=== PATIENT | male | born 1990 | race Caucasian/White ===

== ENCOUNTER 2016-06-08 21:55 | Inpatient (IN) ==
[2016-06-08] MEDS ORDERED: Ondansetron 4 MG/2 ML VIAL IVP ONE (22:33)
[2016-06-08] MEDS ORDERED: *HR* HYDROmorphone (PF) 1 MG/ML SYRINGE IVP ONE ×2 (22:33→23:50)
[2016-06-08] MEDS ORDERED: 0.9 % Sodium Chloride 1,000 ML IVC ONE ×2 (22:33→22:40)
[2016-06-08] MEDS ORDERED: Piperacillin/Tazobactam 3.375 GM in D5% in Water (Mini-Bag+) 100 ML IVPB ONE (22:35)
--- NOTE | 2016-06-08 22:45 | Emergency Department Note ---
START Narrative - START START: I examined this patient and my medical decision-making was reviewed with the PIPELINE GANG SUPERVISOR/PA/Advanced Practice Nurse/Resident Physician. I agree with the documented findings, disposition and treatment plan as described except to the extent set forth below. ED attending note: Patient seen with emergency medicine resident Dr. Lewis. Please see a copy of his note for details of the H&P, evaluation, management and disposition of this patient. We independently had [id number] contact with the patient Briefly: 26-year-old male seen last night by Dr. Erwin myself had no Dr. Tapia S with facial cellulitis that courses of outpatient antibiotics. We tried double coverage last night. Returns with increasing pain and swelling. Febrile and tachycardic. He should not does exhibit SIRS criteria. Patient getting IV analgesics, IV fluids, lactic acid sepsis protocol. Patient will get consult from neurosurgery. Patient will need to be admitted. He will be admitted here or transferred. Provided 30 minutes critical care service for this patient. No airway compromise at this time. Disposition pending.
[2016-06-08 23:02] LABS: Basophils % 0.2 %; Eosinophils % 0.1 %; Hemoglobin 13.6 g/dL (12.9-16.9); Immature Granulocytes % 0.5 % (0-4); Lymphocytes # 1.2 K/mcL (0.6-4.6); Mean Corpuscular Hemoglobin 29.4 pg (28.0-33.3); Mean Corpuscular Volume 86.6 fL (83.0-100.0); Mean Platelet Volume 10.1 fL (9.4-12.4); Monocytes # 1.9 K/mcL (0.0-1.3); Monocytes % 9.5 %; Neutrophils # 16.5 K/mcL (1.6-8.9); Platelet Count 386 K/mcL (140-400); Red Blood Count 4.62 M/mcL (4.19-5.50); Red Cell Distribution Width 12.2 % (11.5-14.5); Segmented Neutrophils % 83.7 %
[2016-06-08 23:14] LABS: BUN/Creatinine Ratio 14 (6-26); Blood Urea Nitrogen 12 mg/dL (8-26); Calcium 9.8 mg/dL (8.6-10.8); Carbon Dioxide 26 mEq/L (19-29); Chloride 101 mEq/L (98-109); Glucose 122 mg/dL (70-99); Magnesium 1.7 mg/dL (1.6-2.6); Osmolality,Calculated 285 (280-300); Phosphorous 1.6 mg/dL (2.3-4.7); Potassium 3.7 mEq/L (3.5-4.5); Sodium 137 mEq/L (136-145); eGFR For African Americans > 60 (> 60); eGFR For Non-African Americans > 60 (> 60)
[2016-06-08] MEDS ORDERED: Lidocaine/EPI 1:100k 1% 20 ML VIAL INFILT ONE (23:18)
[2016-06-08 23:21] LABS: INR 1.2; Prothrombin Time 12.8 Seconds (9.4-12.1)
[2016-06-08 23:24] LABS: Activated Partial Thrombo Time 30.2 Seconds (26.0-36.0)
--- NOTE | 2016-06-08 23:48 | ENT - Consult Note ---
Date of Encounter: 06/08/16 Time of Encounter: 23:30 Assessment and Plan (1) Facial abscess Current Visit: Yes Status: Acute Recommending I&D with culture which was performed in the ER followed by heat IV antibiotics Unasyn probable steroids a pain medication including hydrocodone and nasal decongestant A with nasal saline irrigation of the nose O reevaluate this patient in the morning this patient will be admitted to the hospitalist for management (2) Facial cellulitis Current Visit: Yes Status: Acute White male History of Present Illness History of present illness: White male with several days of progressive worsening of facial cellulitis secondary to dental abscess in the right maxilla patient has an obvious CT finding yesterday of a right buccal abscess which clinically is worsened over the last 24 hours she has swelling around the eye and CT findings consistent with right maxillary sinusitis maxillary sinusitis as a cause of facial cellulitis is rare it is more likely this is a dental issue related to significant tender nurse of his maxillary tooth recommending in-house setting for medical management with IV antibiotics and steroids nasal decongestants Past Med Surg Social Fam HX - Past Medical History Medical history: no medical history Psychiatric history: no psych history - Social History Smoking Status: Current every day smoker Smokeless Tobacco Status: Yes Alcohol use: occasionally Drug use: none - Family History Mother Hx Family Endocrine Disorder: Yes Medications and Allergies Cephalexin [Keflex] 500 mg PO TID #21 capsule 06/08/16 [Rx] Sulfamethoxazole/Trimeth DS [Bactrim DS] 1 each PO BID #14 tablet 06/08/16 [Rx] Acetaminophen [Tylenol] 1,000 mg PO Q6HR PRN 06/09/16 [History] Allergies No Known Allergies Allergy (Verified 06/08/16 22:10) ENT Exam Initial Vital Signs Temp Pulse Resp BP Pulse Ox 100.6 F H 105 18 132/83 95 06/08/16 22:06 06/08/16 22:06 06/08/16 22:06 06/08/16 22:06 06/08/16 22:06 - General physical appearance well developed, well nourished, no distress, moderate pain. negative: moderate distress, severe distress, severe pain, cachectic, obese - Eyes PERRL, normal ocular movement, icteric - ENT normal pinna, normal nares, normal mucosa, no hearing loss, no congestion, deviated nasal septum, nasal discharge, Other (There is significant swelling of the right cheek related to a buccal abscess). negative: decreased hearing, poor correction, dentures, mucosal exudate, dry mucosa - Neck no masses, trachea midline, no lymphadectomy. negative: deviated trachea, diffuse goiter, limited ROM - Respiratory normal expansion, normal respiratory effort, clear to percussion, clear to auscultation - Abdomen Abdomen: soft, non tender, bowel sounds, no tender, no surgical scars - Integumentary no rash, no growths, no abnormal pigmentation Exam Initial Vital Signs Temp Pulse Resp BP Pulse Ox 100.6 F H 105 18 132/83 95 06/08/16 22:06 06/08/16 22:06 06/08/16 22:06 06/08/16 22:06 06/08/16 22:06 Results - Labs 06/09/16 01:10 06/08/16 22:53 Abnormal lab results WBC 19.7 K/mcL (4.3-11.1) H 06/08/16 22:53 Neutrophils # 16.5 K/mcL (1.6-8.9) H 06/08/16 22:53 Monocytes # 1.9 K/mcL (0.0-1.3) H 06/08/16 22:53 PT 12.8 Seconds (9.4-12.1) H 06/08/16 23:09 Glucose 122 mg/dL (70-99) H 06/08/16 22:53 Phosphorus 1.6 mg/dL (2.3-4.7) L 06/08/16 22:53 Diabetes panel 06/08/16 Range/Units 22:53 Sodium 137 (136-145) mEq/L Potassium 3.7 (3.5-4.5) mEq/L Chloride 101 (98-109) mEq/L Carbon Dioxide 26 (19-29) mEq/L BUN 12 (8-26) mg/dL Creatinine 0.84 (0.72-1.25) mg/dL Glucose 122 H (70-99) mg/dL Calcium 9.8 (8.6-10.8) mg/dL Calcium panel 06/08/16 Range/Units 22:53 Calcium 9.8 (8.6-10.8) mg/dL Phosphorus 1.6 L (2.3-4.7) mg/dL Pituitary panel 06/08/16 Range/Units 22:53 Sodium 137 (136-145) mEq/L Potassium 3.7 (3.5-4.5) mEq/L Chloride 101 (98-109) mEq/L Carbon Dioxide 26 (19-29) mEq/L BUN 12 (8-26) mg/dL Creatinine 0.84 (0.72-1.25) mg/dL Glucose 122 H (70-99) mg/dL Calcium 9.8 (8.6-10.8) mg/dL Adrenal panel 06/08/16 Range/Units 22:53 Sodium 137 (136-145) mEq/L Potassium 3.7 (3.5-4.5) mEq/L Chloride 101 (98-109) mEq/L Carbon Dioxide 26 (19-29) mEq/L BUN 12 (8-26) mg/dL Creatinine 0.84 (0.72-1.25) mg/dL Glucose 122 H (70-99) mg/dL Calcium 9.8 (8.6-10.8) mg/dL All other labs normal. Consult Discharge Plan - Plan Referrals: NO,PCP [Primary Care Provider] -
[2016-06-09] MEDS ORDERED: *HR* HYDROcodone/Acet 7.5/325 mg TABLET PO PRN (01:03)
[2016-06-09] MEDS: HYDROcodone/Acet 5-217 mg/10mL 10 ML UDC PO PRN ×3 (01:44→16:57)
[2016-06-09] MEDS: Saline Nasal Spray 44 ML BOTTLE NS PRN ×2 (01:46→03:34)
--- NOTE | 2016-06-09 02:55 | Internal Med History&Physical ---
<Cecilio Santiago - Last Filed: 06/09/16 05:44> Date of Encounter: 06/09/16 Time of Encounter: 02:20 Assessment and Plan (1) Facial abscess Current visit: Yes Status: Acute Patient was seen in numerous department by Dr. Doll, ENT, and underwent I&D. Was recommended the patient be admitted for additional IV antibiotics and pain control. Abscess likely odontogenic in nature, so antibiotic therapy will be directed towards oral pathogens. Dr. Doll is following Continue Unasyn Acetaminophen as needed for mild pain or fever Hydrocodone/acetaminophen liquid (Lortab) for moderate pain Hydromorphone as needed for serious pain Omeprazole Zofran Saline nasal spray Diet soft foods, as patient has significant discomfort with chewing Wait for wound and blood cultures to help direct antibiotic therapy (2) Facial cellulitis Current visit: Yes Status: Acute Patient has inflammation and cellulitis surrounding thecal/maxillary abscess Plan as above (3) DVT prophylaxis Current visit: Yes Status: Acute Patient up ad desirae Internal Medicine - H&P: HPI Chief complaint: Facial Swelling Admitted From: Home Plans for Post Hospital Care: Home History of present illness: Mr. Iraheta is a 26 year old male with no significant prior medical history who presents to [facility] of her having continuation of this right-sided facial swelling and pain. He states the toothache started about 2 weeks ago and was tolerable until Friday when he started noticing the swelling getting larger and he started to have pain on the right side of his face. He reports pain is between a 7/10 in severity described as a pressure that is constant. He went to the emergency room and was given prescription for oral antibiotics, but woke up the following morning with increased facial swelling and pain, unable to open his right eye and decided to come back to the emergency room. He was found to have a buccal abscess and underwent incision and drainage in the emergency room. He denies fever and chills, denies nausea and vomiting, denies chest pain, denies abdominal pain, and denies having difficulty breathing any point his facial swelling. He does report that he did have some sinus pressure as well as yellowish drainage out of his nose. Past Med Surg Social Fam HX - Past Medical History Medical history: no medical history Psychiatric history: no psych history - Social History Smoking Status: Current every day smoker Packs per day: 0.5 Smokeless Tobacco Status: Yes Alcohol use: occasionally Drug use: none - Family History Mother Hx Family Endocrine Disorder: Yes Internal Medicine - H&P: Meds Cephalexin [Keflex] 500 mg PO TID #21 capsule 06/08/16 [Rx] Sulfamethoxazole/Trimeth DS [Bactrim DS] 1 each PO BID #14 tablet 06/08/16 [Rx] Acetaminophen [Tylenol] 1,000 mg PO Q6HR PRN 06/09/16 [History] Allergies No Known Allergies Allergy (Verified 06/08/16 22:10) - Constitutional Constitutional: no chills, no fever(s), no night sweats - EENT Eyes: as per HPI, no change in vision, no discharge, no pain, no photophobia Nose, mouth and throat: sinus pressure, no dysphagia, no nasal discharge, no neck pain, no sore throat - Cardiovascular Cardiovascular ROS IM: no chest pain, no diaphoresis, no dyspnea, no lightheadedness, no palpitations, no syncope - Respiratory Respiratory: no cough, no dyspnea, no wheezing, no excessive phlegm production - Gastrointestinal Gastrointestinal: no abdominal pain, no diarrhea, no hematemesis, no hematochezia, no melena, no nausea, no vomiting - Musculoskeletal Musculoskeletal ROS IM: no numbness, no tingling - Integumentary Integumentary IM: no rash, no unusual bruising - Neurological Neurological ROS: no confusion, no convulsions, no focal weakness, no numbness, no tingling, no tremor(s) - Hematologic/Lymphatic Hematologic/Lymphatic: no easy bruising - Constitutional Vitals: Temp Pulse Resp BP Pulse Ox 98.4 F 87 18 126/74 96 06/09/16 01:03 06/09/16 01:03 06/09/16 01:03 06/09/16 01:03 06/09/16 01:03 Exam: General: Cooperative, pleasant, no acute distress, alert and oriented 3, answers questions appropriately Head: Normocephalic, atraumatic, right side of face swollen, erythema around right eye, right eye swollen shut, oral mucosa moist, swelling right side of mouth, tender palpation, increased warmth on right side of face Eye: Conjunctiva pink, sclera anicteric, EOMI, PERRL Neck: Supple, trachea midline Respiratory: No accessory muscle usage, clear to auscultation bilaterally, no wheezes/rhonchi/rales appreciated Cardiovascular: Regular rate and rhythm, S1 and S2 present, no murmurs/rubs/ gallops/clicks appreciated GI/abdominal: Nondistended, nontender, soft, normal bowel sounds, no peritoneal signs Extremities: No calf tenderness, noncyanotic, no pedal edema appreciated, warm, lower extremity pulses palpable and symmetrical Neurological: Alert and oriented 3, no facial droop, no focal deficits Skin: Dry, intact, normal color Internal Med - H&P Results - Labs CBC & Chem 7: 06/09/16 01:10 06/08/16 22:53 - Impressions Patient had facial CT performed his previous presentation to [facility], on 06/07/16 Impression at that time was: Right facial cellulitis with superimposed 24 x 6 mm right maxillary buccal abscess, likely odontogenic in origin. Multiple dental caries and tiny right maxillary periapical abscess <Nessa Asencio - Last Filed: 06/09/16 10:44> Internal Medicine - H&P: HPI History of present illness: Mr. Iraheta is a 26 year old male All Systems PM: A 10-system review of systems was performed and is negative for pertinent findings except as documented above in the HPI. - Constitutional Vitals: Temp Pulse Resp BP Pulse Ox 98.9 F 71 15 146/87 96 06/09/16 06:42 06/09/16 06:42 06/09/16 06:42 06/09/16 06:42 06/09/16 06:42 Internal Med - H&P Results - Labs CBC & Chem 7: 06/09/16 01:10 06/08/16 22:53 - Attending Attestation I performed a history and physical examination of the patient and discussed his management with the Resident/Certified Alcohol Counselor. I reviewed the residents note and agree with the documented findings and plan of care, with additions as below. 26 Y/M with right buccal abscess and facial cellulitis. I&D of the abscess was done by the ENT physician. Admitted for IV antibiotics for the facial cellulitis. Patient has significant leukocytosis. O/E: right facial swelling present, with periorbital edema. A/P; Right facial cellulitis: Continue Unasyn and pain relief. If not improving , will consider adding vancomycin.
[2016-06-09] MEDS ORDERED: Ondansetron 4 MG/2 ML VIAL IVP PRN (02:57)
[2016-06-09] MEDS ORDERED: Acetaminophen 325 MG TABLET PO PRN (02:57)
[2016-06-09] MEDS ORDERED: Naloxone 0.4 MG/ML INJ IVP PRN (02:57)
[2016-06-09] MEDS ORDERED: *HR* HYDROmorphone (PF) 1 MG/ML SYRINGE IVP PRN (02:57)
[2016-06-09 04:38] LABS: Basophils % 0.1 %; Hematocrit 38.6 % (37.5-50.1); Hemoglobin 12.8 g/dL (12.9-16.9); Immature Granulocytes % 0.5 % (0-4); Lymphocytes # 1.4 K/mcL (0.6-4.6); Lymphocytes % 6.4 %; Mean Corpuscular HGB Conc 33.2 g/dL (31.6-35.5); Mean Corpuscular Hemoglobin 29.3 pg (28.0-33.3); Mean Corpuscular Volume 88.3 fL (83.0-100.0); Mean Platelet Volume 10.8 fL (9.4-12.4); Monocytes # 1.7 K/mcL (0.0-1.3); Monocytes % 8.1 %; Neutrophils # 18.3 K/mcL (1.6-8.9); Platelet Count 377 K/mcL (140-400); Red Blood Count 4.37 M/mcL (4.19-5.50); Red Cell Distribution Width 12.1 % (11.5-14.5); Segmented Neutrophils % 84.9 %
--- NOTE | 2016-06-09 04:40 | Emergency Department Note ---
Disposition Clinical Impression: Facial abscess Sepsis Qualifiers: Sepsis type: sepsis due to unspecified organism Qualified Code(s): A41.9 - Sepsis, unspecified organism Disposition: Admitted As Inpatient Condition: Fair Time of Disposition: 04:45 Wound/Laceration HPI - General Chief Complaint: ED Dental/Oral Stated Complaint: facial swelling Time Seen by Provider: 06/08/16 22:25 Source: patient Limitations: no limitations Nursing Notes Reviewed: Yes Vital Signs Reviewed: Yes - History of Present Illness HPI Narrative: 26-year-old male with right facial swelling, patient had been discharged yesterday after a visit for the same. To have multiple dental caries, maxillary teeth, he had a CT scan that showed a buccal maxillaty abscess yesterday, was discharged with Bactrim and Keflex follow with Dr. Lima and oral surgery. Patient states that the swelling is worse, that he did take his Ativan is prescribed barking croup symptoms, as 8 out of 10 pain in his right face, difficulty chewing and no tenderness mouth. Denies any dysphasia. Denies shortness of breath or difficulty breathing. Patient also states his right eye has been swollen is difficult for him to see out of his right eye. Onset (ago): day(s) Location: face Place: home Patient Tetanus UTD: Yes Associated symptoms: Reports: other Pain Severity: moderate (Facial swelling) Pain Scale: 8 - Related Data Home Medications Medication Instructions Recorded Confirmed Acetaminophen [Tylenol] 1,000 mg PO Q6HR PRN 06/09/16 06/09/16 Previous Rx's Medication Instructions Recorded Cephalexin [Keflex] 500 mg PO TID #21 capsule 06/08/16 Sulfamethoxazole/Trimeth DS 1 each PO BID #14 tablet 06/08/16 [Bactrim DS] Allergies Allergy/AdvReac Type Severity Reaction Status Date / Time No Known Allergies Allergy Verified 06/08/16 22:10 All systems ED: reviewed and negative except as stated. Constitutional: Reports: as per HPI, fever, chills ENT ED: Reports: dental pain, other (Facial swelling, tooth pain). Denies: ear pain Cardiovascular: Denies: chest pain, palpitations Respiratory: Denies: cough, dyspnea Gastrointestinal: Denies: abdominal pain, nausea, vomiting Genitourinary: Denies: urgency, dysuria Musculoskeletal: Denies: back pain, neck pain Past Medical History - Past Medical History Attestation: Yes The following information was validated with the patient. Source: patient Medical history: Reports: no medical history Psychiatric history: Reports: no psych history - Social History Smoking Status: Current every day smoker Smokeless Tobacco Status: Yes Alcohol use: Reports: occasionally Drug use: Reports: none Physical Exam Constitutional: Patient is moderate distress, tachycardic and febrile. HEENT: Facial edema, periorbital edema, with good pupillary response bilaterally , extraocular muscles intact bilaterally. Right maxillary caries, tenderness palpation of the right maxillary and mandibular teeth, erythematous and swelling nuchal mucosa mucosa uvula is nondeviated. No evidence of RPA. Neck: Ttp anterior submental lymph nodes. Resp: normal chest inspection, CTA bilaterally, no resp distress CV: RRR, no m/g/r GI: normal inspection, Soft, NTND, BS present Back: normal inspection, no tenderness to palpation Neuro: A&O3, no gross motor or sensory deficits bilaterally Skin: Cyst of the right face. - General Limitations: no limitations General appearance: alert Course Course Narrative: 26 yom male with right maxillary buccal mucosa abscess, I contacted the surgeon Dr. Mann he states IV antibiotics are indicated, given that the patient is septic and I did place the patient already on fluids and Zosyn, sepsis workup patient is not have any evidence of severe sepsis or hypotension, patient likely did believe the hospitalist however the oral surgeon will not be able to round on the patient before therefore will talk to ENT. - Consultations Consultation #1: ENT was paged Dr. peña arrived at bedside and performed an incision and drainage please see his note and documentation, patient will be admitted to the medicine service for IV fluids and antibiotics. Vital Signs Temperature 100.6 F H 06/08/16 22:06 Pulse Rate 105 06/08/16 22:06 Respiratory Rate 18 06/08/16 22:06 Blood Pressure 132/83 06/08/16 22:06 O2 Sat by Pulse Oximetry 95 06/08/16 22:06 Temperature 98.4 F 06/09/16 01:03 Pulse Rate 87 06/09/16 01:03 Respiratory Rate 18 06/09/16 01:03 Blood Pressure 126/74 06/09/16 01:03 O2 Sat by Pulse Oximetry 96 06/09/16 01:03 Oxygen Delivery Oxygen Delivery Room Air Wound/Laceration - [facility] Narrative Medical decision making narrative: 26-year-old male with sepsis and a facial abscess, incised a bedside by the ear nose and throat surgeon, admitted to medicine service for IV fluids and antibiotics consult placed by ENT - Differential Diagnosis Differential Diagnosis: Likely: laceration, abscess - Medical Records Medical records reviewed: Yes I reviewed the patient's medical records. - Lab Data Lab results reviewed: Yes I reviewed the patient's lab results. Result diagrams: 06/09/16 01:10 06/08/16 22:53 Lab Results 06/08/16 06/08/16 06/08/16 Range/Units 22:53 22:53 22:53 WBC 19.7 H (4.3-11.1) K/mcL RBC 4.62 (4.19-5.50) M/mcL Hgb 13.6 (12.9-16.9) g/dL Hct 40.0 (37.5-50.1) % MCV 86.6 (83.0-100.0) fL MCH 29.4 (28.0-33.3) pg MCHC 34.0 (31.6-35.5) g/dL RDW 12.2 (11.5-14.5) % Plt Count 386 (140-400) K/mcL MPV 10.1 (9.4-12.4) fL Immature Gran % 0.5 (0-4) % Seg Neutrophils % 83.7 % Lymphocytes % 6.0 % Monocytes % 9.5 % Eosinophils % 0.1 % Basophils % 0.2 % Neutrophils # 16.5 H (1.6-8.9) K/mcL Lymphocytes # 1.2 (0.6-4.6) K/mcL Monocytes # 1.9 H (0.0-1.3) K/mcL Eosinophils # 0.0 (0.0-0.6) K/mcL Basophils # 0.0 (0.0-0.2) K/mcL PT (9.4-12.1) Seconds INR APTT (26.0-36.0) Seconds Sodium 137 (136-145) mEq/L Potassium 3.7 (3.5-4.5) mEq/L Chloride 101 (98-109) mEq/L Carbon Dioxide 26 (19-29) mEq/L BUN 12 (8-26) mg/dL Creatinine 0.84 (0.72-1.25) mg/dL Est GFR ( Amer) > 60 (> 60) Est GFR (Non-Af Amer) > 60 (> 60) BUN/Creatinine Ratio 14 (6-26) Glucose 122 H (70-99) mg/dL Calculated Osmolality 285 (280-300) Lactic Acid 1.4 (0.5-2.2) mmol/L Calcium 9.8 (8.6-10.8) mg/dL Phosphorus 1.6 L (2.3-4.7) mg/dL Magnesium 1.7 (1.6-2.6) mg/dL 06/08/16 Range/Units 23:09 WBC (4.3-11.1) K/mcL RBC (4.19-5.50) M/mcL Hgb (12.9-16.9) g/dL Hct (37.5-50.1) % MCV (83.0-100.0) fL MCH (28.0-33.3) pg MCHC (31.6-35.5) g/dL RDW (11.5-14.5) % Plt Count (140-400) K/mcL MPV (9.4-12.4) fL Immature Gran % (0-4) % Seg Neutrophils % % Lymphocytes % % Monocytes % % Eosinophils % % Basophils % % Neutrophils # (1.6-8.9) K/mcL Lymphocytes # (0.6-4.6) K/mcL Monocytes # (0.0-1.3) K/mcL Eosinophils # (0.0-0.6) K/mcL Basophils # (0.0-0.2) K/mcL PT 12.8 H (9.4-12.1) Seconds INR 1.2 APTT 30.2 (26.0-36.0) Seconds Sodium (136-145) mEq/L Potassium (3.5-4.5) mEq/L Chloride (98-109) mEq/L Carbon Dioxide (19-29) mEq/L BUN (8-26) mg/dL Creatinine (0.72-1.25) mg/dL Est GFR ( Amer) (> 60) Est GFR (Non-Af Amer) (> 60) BUN/Creatinine Ratio (6-26) Glucose (70-99) mg/dL Calculated Osmolality (280-300) Lactic Acid (0.5-2.2) mmol/L Calcium (8.6-10.8) mg/dL Phosphorus (2.3-4.7) mg/dL Magnesium (1.6-2.6) mg/dL - Radiology Data Radiology results reviewed: Yes I reviewed the patient's radiology results.
[2016-06-09] MEDS: Ampicillin/Sulbactam 1,500 MG in 0.9 % Sodium Chloride Mini Bag 100 ML IVPB SCH ×3 (05:22→16:58)
[2016-06-09] MEDS: *HR* HYDROmorphone (PF) 1 MG/ML SYRINGE IVP PRN ×2 (06:56→09:18)
[2016-06-09] MEDS ORDERED: Lactobacillus 1 EACH CAP.SPRINK PO SCH (10:45)
--- NOTE | 2016-06-09 10:55 | ENT - Progress Note ---
Date of Encounter: 06/09/16 Time of Encounter: 11:00 - Assessment and Plan (1) Facial abscess Current Visit: Yes Status: Acute Recommending I&D with culture which was performed in the ER followed by heat IV antibiotics Unasyn probable steroids a pain medication including hydrocodone and nasal decongestant A with nasal saline irrigation of the nose O reevaluate this patient in the morning this patient will be admitted to the hospitalist for management the (2) Facial cellulitis Current Visit: Yes Status: Acute White male Subjective Patient reports: no new complaints, feels better, still having pain, pain is less, afebrile Objective Initial Vital Signs Temp Pulse Resp BP Pulse Ox 100.6 F H 105 18 132/83 95 06/08/16 22:06 06/08/16 22:06 06/08/16 22:06 06/08/16 22:06 06/08/16 22:06 - General physical appearance well developed, well nourished, moderate distress, moderate pain - Eyes PERRL - ENT deviated nasal septum, mucosal exudate, Other (Facial swelling on the right side improving eye substantially opened) - Neck no masses, no lymphadectomy - Respiratory normal expansion - Abdomen non tender - Integumentary no rash - Neurologic CN 2-12 grossly intact, normal coordination - Musculoskeletal normal gait - Psychiatric oriented to time, oriented to person, oriented to place, speech is normal ( Right shows swelling substantially improved from yesterday patient afebrile still having some drainage) - Labs 06/09/16 01:10 06/08/16 22:53 Consult Discharge Plan - Plan Referrals: NO,PCP [Primary Care Provider] -
[2016-06-09 16:15] VITALS: BP 122/79
--- NOTE | 2016-06-11 17:29 | Discharge Summary ---
Date of Encounter: 06/11/16 Time of Encounter: 17:49 - Discharge Diagnosis (1) DVT prophylaxis Priority: Secondary Status: Acute (2) Facial abscess Priority: Primary Status: Acute (3) Facial cellulitis Priority: Primary Status: Acute (4) Sepsis Priority: Primary Status: Acute Qualifiers: Sepsis type: Streptococcus, unspecified Qualified Code(s): A40.9 - Streptococcal sepsis, unspecified; A40 - Streptococcal sepsis - Discharge Medications Prescriptions: Amoxicillin/Clavulanate [Augmentin] 875 mg PO BIDWM 7 Days Home Medications: Cephalexin [Keflex] 500 mg PO TID #21 capsule 06/08/16 [Rx] Acetaminophen [Tylenol] 1,000 mg PO Q6HR PRN 06/09/16 [History] Amoxicillin/Clavulanate [Augmentin] 875 mg PO BIDWM 7 Days 06/09/16 [Rx] Sulfamethoxazole/Trimeth DS [Bactrim DS] 1 tab PO BID 06/09/16 [History] Allergies/Adverse Reactions: Allergies No Known Allergies Allergy (Verified 06/08/16 22:10) Date of admission: 06/09/16 04:31 Primary care physician: PCP NO - Patient Status Disposition: Left Against Medical Advice Condition: Serious Overall status at discharge: patient is not back to baseline - Discharge Instructions Follow Up With: NO,PCP [Primary Care Provider] - Forms: ED Satisfaction Letter Interval History: Mr. Iraheta is a 26 year old male with no significant prior medical history who presents to [facility] having continuation of this right-sided facial swelling and pain. Patient was diagnosed to have tooth abscess and faxial celllitis. He was started on teratement with IV antibiotics ans analgesics with improvement. He was evaluated by ENT, agreed with abx therapy. Dental abscess was drained. Patient on day following admissiond emamded to be dsicharged home. Patient was advised to continue stay in hospital and continue IV antibiotic therapy as he cntinues to have facial swelling and risks of complcitions including intracranial extension of abscess which he expresses understanding to. however he refused to stay and left AMA. prescriptionw as provided for PO antibiotics to be continued for 7 days on d/c. He states that he will follow up with ENT and PCP. Hospital course: Mr. Iraheta is a 26 year old male - Time Spent with Patient Total time spent providing and/or coordinating discharge services: Greater than 30 minutes - Constitutional Vitals: Temp Pulse Resp BP Pulse Ox 98.5 F 76 15 122/79 98 06/09/16 16:14 06/09/16 16:14 06/09/16 16:14 06/09/16 16:14 06/09/16 16:14 - Head Head exam: Present: atraumatic, normocephalic - Eye Eye exam: Present: PERRL, conjuntiva pink, sclera anicteric Pupils: Present: PERRL - ENT ENT exam: Absent: normal exam Additional comments: facial swelling and tendernes. on right side. ABle to open eyeids, no redness noted. Swelling in the right side of the oral cavity and tongue noticed - Neck Neck exam general surgery: Present: supple, trachea midline. Absent: lymphadenopathy - Respiratory Respiratory exam: Present: CTAB. Absent: accessory muscle use, rales, rhonchi, wheezes - Cardiovascular Cardiovascular exam: Present: RRR, +S1, +S2. Absent: diastolic murmur, gallop, rubs, systolic murmur - GI/Abdominal GI/Abdominal exam: Present: normal bowel sounds, soft, no peritoneal signs. Absent: distended, tenderness - Extremities Exam Extremities exam: Present: warm, radial pulses palpable and symetrical. Absent : calf tenderness, cyanotic, pedal edema - Neurological Exam Neurological exam: Present: CN II-XII intact, oriented X3, no focal deficits. Absent: pronater drift, facial droop, speech deficit - Skin Skin exam: Present: dry, intact
== END 2016-06-09 17:50 | disposition left against medical advice (07) | DRG 854 ==
LOC: EMEROO 21:55 → 3ANU 21:55
PROVIDERS: ADMIT Internal Medicine; ATTEND Internal Medicine